=== PATIENT | female | born 1970 | race Caucasian/White ===

== ENCOUNTER 2024-11-03 19:13 | Emergency (ER) | payer MEDICAID, SELFPAY ==
[2024-11-03 19:24] VITALS: BP 158/89; PULSE 74; RESP 18; TEMP 36.7; O2SAT 98; BMI 27.8
--- NOTE | 2024-11-03 19:44 | ED.GENADULT ---
HPI - General Adult General Chief complaint: Laceration/Wound Stated complaint: fell, lac on eyebrow Time Seen by Provider: 11/03/24 19:28 Source: patient Mode of arrival: ambulatory Limitations: no limitations History of Present Illness HPI narrative: A 54-year-old female coming in today with a laceration to the left outer eyebrow. She states that she was dog sitting her son's 7-month-old almost 60 lb puppy who pulled her and she went forward hitting her head on the sidin of her house. She did not fall to the ground. She did not lose consciousness. She denies headache, neck pain or pain around her eyes. She is not on a blood thinner. Related Data Home Medications ?Medication ?Instructions ?Recorded ?Confirmed No Known Home Medications 11/03/24 11/03/24 Allergies Allergy/AdvReac Type Severity Reaction Status Date / Time No Known Drug Allergies Allergy Verified 11/03/24 19:26 Review of Systems Status of ROS: Reports: 6 or more systems reviewed and unremarkable except as noted in History and below [facility] Social History Smoking Status: Never smoker Second hand tobacco smoke exposure: No How often do you have a drink containing alcohol: never AUDIT-C Alcohol total score: 0 Non-prescribed substance use: denies use Exam Narrative: Exam Narrative: Well-nourished well-developed patient in no acute distress. Alert and oriented. Answers questions appropriately. Mood and affect are appropriate. Thoughts are goal oriented and rational. No tangential or magical thinking noted. Patient speaks in full sentences without needing to catch trauma breath. HEENT: Normocephalic. Pupils are equally round reactive to light. Extraocular muscles are intact. No pain with extraocular movement. Conjunctivae are moist without any icterus noted. Moist mucous membranes. Posterior pharynx is normal. No trauma noted to the inside of the mouth. Neck is soft without any pain. Patient has approximately a 2 and then a 3 mm lacerations that are parallel to each other just at the distal end of the left eyebrow. The lacerations penetrate into the dermis but do not penetrate through the dermis into the subcutaneous tissue. The skin is not gaping open. She has no tenderness around the orbit, over the cheek bone or the nose. She has little swelling over the area. No significant bruising yet. Const: Vital Signs, click to edit/add: Vital Signs - 24 hr 11/03/24 19:24 Temperature 98.1 F Pulse Rate [Pulse Oximeter] 74 Respiratory Rate 18 Blood Pressure [Ri ght Upper Arm] 158/89 H Pulse Oximetry 98 Oxygen Delivery Me thod Room Air Course Course ED Course: Laceration was clean and Dermabond was applied. Last tetanus shot was in 2014, Tdap updated today. Vital Signs Vital signs: Initial Vital Signs Temperature 98.1 F 11/03/24 19:24 Temperature Source Temporal Artery Scan 11/03/24 19:24 Pulse Rate 74 11/03/24 19:24 Respiratory Rate 18 11/03/24 19:24 Blood Pressure 158/89 H 11/03/24 19:24 Blood Pressure Mean 112 H 11/03/24 19:24 Blood Pressure Position Sitting 11/03/24 19:24 Pulse Oximetry 98 11/03/24 19:24 Oxygen Delivery Method Room Air 11/03/24 19:24 Vital Signs Temperature 98.1 F 11/03/24 19:24 Pulse Rate 74 11/03/24 19:24 Respiratory Rate 18 11/03/24 19:24 Blood Pressure 158/89 H 11/03/24 19:24 Pulse Oximetry 98 11/03/24 19:24 Oxygen Delivery Method Room Air 11/03/24 19:24 Temperature 98.1 F 11/03/24 19:24 Pulse Rate 74 11/03/24 19:24 Respiratory Rate 18 11/03/24 19:24 Blood Pressure 158/89 H 11/03/24 19:24 Pulse Oximetry 98 11/03/24 19:24 Oxygen Delivery Method Room Air 11/03/24 19:24 Medical Decision Making MDM Narrative Medical decision making narrative: 54-year-old female status post facial trauma with small laceration to the eyebrow treated per above. No evidence of concussion. Tetanus shot updated. We discussed symptomatic treatment and reasons for follow-up. Discharge Plan Discharge Clinical Impression: Facial trauma, Eyebrow laceration Patient Disposition: Home, Self-Care Condition: Stable Instructions: Skin Adhesive Care (ED) Prescriptions: No Action No Known Home Medications Follow Up/Referrals: Camila Martines PA-C [Primary Care Provider, Family Practice] Stand Alone Forms: [facility] Info Instructions
[2024-11-03 19:54] VITALS: BP 158/89; PULSE 74; RESP 18; TEMP 36.7; O2SAT 98
[2024-11-03] MEDS: TETANUS/DIPHTH/PERTUSSIS 0.5 ML SYRINGE IM (19:54)
== END 2024-11-03 20:02 | disposition home or self-care (01) ==
LOC: ED 20:01
PROVIDERS: Emergency Provider Family Medicine; PCP Student in an Organized Health Care Education/Training Program
DX: S01.112A Laceration without foreign body of left eyelid and periocular area, initial encounter (principal); W18.39XA Other fall on same level, initial encounter; Z23 Encounter for immunization
CPT/HCPCS: 12011; 90471; 90715; 99283; 99284